=== PATIENT | male | born 1980 | race Two or more races ===

== ENCOUNTER 2016-09-27 15:15 | Emergency (ER) | payer BC, OTHER ==
[~2016-09-27] VITALS: Ht 167.6 cm; Wt 61.5 kg
[2016-09-27 17:04] VITALS: BP 140/87
== END 2016-09-27 17:07 | disposition home or self-care (01) ==
LOC: ED 16:14
DX: R07.0 Pain in throat (principal); R13.10 Dysphagia, unspecified
CPT/HCPCS: 70360; 71020; 93005; 99284